=== PATIENT | female | born 1980 | race Asian ===

== ENCOUNTER 2023-11-27 18:48 | Emergency (ER) | payer OTHER ==
--- NOTE | 2023-11-27 21:21 | ED Physician Documentation ---
PD HPI NECK PAIN - Stated complaint Stated Complaint: NECK PX,AREVALO - Chief complaint Chief Complaint: Heent - History obtained from History obtained from: Patient - Additional information Additional information: Patient is a 43-year-old female with a history of heart failure presenting for evaluation of right-sided neck pain that started yesterday morning. Patient believes that she woke up with the pain and it has been gradually worsening. She states that it feels like a tightness that radiates from the base of her skull down her neck and over the right shoulder. She has tried ibuprofen and Salonpas without any improvement. She was working at her desk today when it felt like it was getting worse around 430 and she was having more difficulties in turning [id number]. She denies any head injury. No neck manipulation. Denies trauma. No numbness or tingling. Does not take any blood thinners. Review of Systems Constitutional: denies: Fever Cardiac: denies: Chest pain / pressure Respiratory: denies: Dyspnea GI: denies: Abdominal Pain Musculoskeletal: reports: Neck pain Neurologic: denies: Numbness PD PAST MEDICAL HISTORY - Present Medications Home Medications: Ambulatory Orders Medication Instructions Recorded Confirmed Amiodarone [Pacerone] 200 mg PO DAILY 11/27/23 Empagliflozin [Jardiance] 10 mg PO DAILY 11/27/23 Oxycodone HCl/Acetaminophen 1 each PO Q6H PRN #10 tablet 11/27/23 [Percocet 5-325 mg Tablet] Sacubitril/Valsartan [Entresto 24 1 tab PO DAILY 11/27/23 mg-26 mg Tablet] Spironolactone [Aldactone] 25 mg PO DAILY 11/27/23 Zebeta 5 mg PO DAILY 11/27/23 - Allergies Allergies/Adverse Reactions: Allergies Allergy/AdvReac Type Severity Reaction Status Date / Time No Known Drug Allergies Allergy Verified 11/27/23 19:12 PD ED PE NORMAL - General General: Alert and oriented X 3, No acute distress, Well developed/nourished - HEENT HEENT: Atraumatic, Moist mucous membranes, Pharynx benign - Neck Neck: No bony TTP, Other (Tenderness and spasm over right trapezius, Pain with lateral neck movements; no pain with touching chin to chest) - Cardiac Cardiac: RRR, Strong equal pulses - Respiratory Respiratory: No respiratory distress, Clear bilaterally - Derm Derm: Warm and dry - Extremities Extremities: Other (Normal strength with shoulder extension, arm flexion and extension, wrist extension and hand grasp) - Neuro Neuro: Alert and oriented X 3, No motor deficit, No sensory deficit, Normal speech Results - Vitals Vitals: Vital Signs - 24 hr 11/27/23 11/27/23 11/27/23 19:03 20:49 22:00 Temperature 36.2 C L Heart Rate 71 65 68 Respiratory 17 24 18 Rate Blood Pressure 113/72 123/70 111/90 H O2 Saturation 98 98 98 11/27/23 23:27 Temperature Heart Rate 62 Respiratory 16 Rate Blood Pressure 114/76 O2 Saturation 97 Oxygen O2 Source Room air PD Medical Decision Making - ED course Complexity details: re-evaluated patient ED course: Patient is a 43-year-old female presenting for evaluation of right-sided neck pain for the past 2 days. Patient states that it is gradually been worsening and also now causing a headache. Denies injury or trauma. No neck manipulations. No radicular symptoms to upper extremities. Good distal pulses.No fever or other illness to suggest meningitis. History does also not suggest subarachnoid hemorrhage. Patient does have focal tenderness to the right paracervical region.Initially patient was given a dose of IM Toradol, p.o. Flexeril and a lidocaine patch with only minimal improvement in symptoms. Patient then received an oxycodone and reported feeling much better. She states she did not feel like the muscle relaxer helped her very much. Discussed Co ntinued supportive care as well as concerning symptoms to return for. Patient also advised on need for close follow-up. 2310 - Feeling better, feels like she has had some relief from the pain. Is able to turn her neck to the sides better. Departure - Departure Disposition: 01 Home, Self Care Clinical Impression: Neck pain Condition: Stable Instructions: ED Neck Pain No Trauma Prescriptions: Oxycodone HCl/Acetaminophen [Percocet 5-325 mg Tablet] 1 each PO Q6H PRN #10 tablet PRN Reason: pain Comments: I have sent a prescription for pain medication to [facility] in [place]. Please use this only as needed. Otherwise please continue with anti- inflammatory such as acetaminophen or ibuprofen. You can try heat to the area as ice did not seem like it helped very much. If at anytime you have any worsening symptoms please return to the emergency department. Otherwise I would recommend follow-up with your primary care provider if your symptoms or not improving. I am prescribing a short course of narcotic pain medication for you. These are potentially dangerous and addictive medications that should be used carefully. These medications may constipate you. Take an bakf-flx-brnazti stool softener (docusate) twice daily with plenty of water while taking these medications. If you go 24 hours without a bowel movement, take [id number] miralax, per package instructions. Do not drink or drive while taking these medications. If you received narcotic or sedating medications while in the emergency department, do not drive for 24 hours. Store this medication in a safe, secure place and out of reach of children. It is a violation of federal law to give or sell this medication to another person or to use in a manner other than prescribed. The ED will not refill narcotic prescriptions, including prescriptions lost or stolen. To dispose of unwanted medications: 1. [facility] at [address] in [place] has a medication drop box. They accept prescription medications (in pill form) Sunday through Sunday 9:00 a.m. to 5:00 p.m. 2. The [facility] [employer] accepts prescription medications (in pill form only) for disposal year round. Call for more information. 3. Contact the [facility] for the next [facility] sponsored prescription drug collection event. , [phone], or [phone]; Note that many narcotic pain relievers also contain Tylenol/acetaminophen. Please ensure that your total dose of acetaminophen from all sources does not exceed 3 g (3000 mg) per day. Forms: PCP List, Activity restrictions Discharge Date/Time: 11/27/23 23:28
[2023-11-27] MEDS: CYCLOBENZAPRINE 10 MG TABLET PO STA (21:35)
[2023-11-27] MEDS: KETOROLAC 60 MG/2 ML VIAL IM STA (21:35)
[2023-11-27] MEDS: LIDOCAINE PATCH 4% TOP STA (21:35)
[2023-11-27] MEDS: oxyCODONE 5 MG TABLET PO STA (22:29)
[2023-11-27] MEDS: oxyCODONE/ACET 5/325 Prepack 4 PO STA (23:22)
[2023-11-27 23:29] VITALS: BP 114/76; O2SAT 97
== END 2023-11-27 23:28 | disposition home or self-care (01) ==
LOC: ED 18:48
DX: M54.2 Cervicalgia (principal); M25.511 Pain in right shoulder; R51.9 Headache, unspecified
CPT/HCPCS: 96374; 99283; A9270

== ENCOUNTER 2023-11-30 11:33 | Emergency (ER) | payer OTHER ==
--- NOTE | 2023-11-30 11:51 | ED Physician Documentation ---
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 Patient was here 3 days ago when she described neck pain and neck stiffness. Pain originally started Sunday when she first woke up she felt a mild aching to the right portion of her neck throughout the day it had gotten significantly worse. She presented to the emergency department where she was given muscle relaxers and pain medications which did alleviate a lot of her pain but did not take away her pain. At home she has been continuing to take the Percocet, Tylenol, ibuprofen, lidocaine patch, IcyHot patches to the neck as well as muscle relaxers nothing seems to alleviate the show pain that she is experiencing in her right neck. She describes the pain as sharp shooting she has no arm weakness pain does not radiate to her arms is mostly on the right side of her neck mostly anterior and then wraps around the right portion behind her head. She says that there is pain with swallowing she has limited range of motion especially when she is looking towards the right she is able to put her chin to her chest. She has no recent fevers or chills no recent illnesses she has had no recent international travel and no one in the household is sick. PD PAST MEDICAL HISTORY - Past Medical History Past Medical History: No Cardiovascular: Congestive heart failure, Arrhythmia - Past Surgical History Past Surgical History: Yes Cardiovascular: Other - Present Medications Home Medications: Ambulatory Orders Medication Instructions Recorded Confirmed Amiodarone [Pacerone] 200 mg PO DAILY 11/27/23 11/30/23 Empagliflozin [Jardiance] 10 mg PO DAILY 11/27/23 11/30/23 Oxycodone HCl/Acetaminophen 1 each PO Q6H PRN #10 tablet 11/27/23 11/30/23 [Percocet 5-325 mg Tablet] Sacubitril/Valsartan [Entresto 24 1 tab PO DAILY 11/27/23 11/30/23 mg-26 mg Tablet] Spironolactone [Aldactone] 25 mg PO DAILY 11/27/23 11/30/23 bisoproloL fumarate [Bisoprolol 5 mg PO DAILY 11/30/23 11/30/23 Fumarate] - Allergies Allergies/Adverse Reactions: Allergies Allergy/AdvReac Type Severity Reaction Status Date / Time No Known Drug Allergies Allergy Verified 11/30/23 11:43 - Social History Does the pt smoke?: No Smoking Status: Never smoker Does the pt drink ETOH?: No Does the pt have substance abuse?: No PD ED PE NORMAL - Vitals Vital signs reviewed: Yes - General General: Alert and oriented X 3, Well developed/nourished - HEENT HEENT: PERRL, EOMI, Moist mucous membranes, Pharynx benign - Neck Neck: Supple, no meningeal sign, No bony TTP, No adenopathy, No JVD - Cardiac Cardiac: RRR - Respiratory Respiratory: No respiratory distress, Clear bilaterally - Back Back: No spinal TTP - Derm Derm: Normal color, Warm and dry, No rash - Extremities Extremities: No deformity, No tenderness to palpate, Normal ROM s pain, No edema - Neuro Neuro: Alert and oriented X 3, 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, No motor deficit, Normal speech Eye Opening: Spontaneous Motor: Obeys Commands Verbal: Oriented GCS Score: 15 - Psych Psych: Normal mood Results - Vitals Vitals: Vital Signs - 24 hr 11/30/23 11/30/23 11:37 15:48 Temperature 36.5 C Heart Rate 71 78 Respiratory 15 16 Rate Blood Pressure 125/77 121/83 H O2 Saturation 99 100 Oxygen O2 Source Room air - Labs Labs: Laboratory Tests 11/30/23 11/30/23 12:30 14:00 Sodium 138 Potassium 4.0 Chloride 105 Carbon Dioxide 24 Anion Gap 9.0 BUN 18 Creatinine 0.8 Estimated GFR (MDRD) 78 L Glucose 93 Calcium 9.5 Total Bilirubin 0.8 AST 13 ALT 11 Alkaline Phosphatase 30 L Total Protein 7.8 Albumin 4.4 Globulin 3.4 Albumin/Globulin Ratio 1.3 Urine HCG, Qual NEGATIVE - Rads (name of study) CT neck soft tissue without Relevant Findings:: Final report received, EMP independent interpretation of test (No acute abnormal findings within the neck, no bony abnormalities she is normal glands, no . Enlarged lymph nodes) PD Medical Decision Making - ED course ED course: 43-year-old female presents emergency department for neck pain. She was here 3 days ago no imaging was done. He said that since she is gone home the pain has not gotten worse but it has persisted. She said that she is having pain with swallowing so we decided to go ahead with the CT soft tissue for further evaluation of this for concerns of possible abnormalities in relation to your parotid glands. CT came back unremarkable no bony abnormalities no enlarged lymph nodes, normal glands. She has no pain with talking her Chin to her chest no p tenderness with palpation throughout entire cervical region no spinal process tenderness. She has had no fevers or chills make me less worried that a possible abscess. Labs are also obtained no kidney impairment GFR slightly suppressed at 78, normal BUN normal creatinine no electrolyte abnormalities I am that patient is experiencing pain to the cervical region due to neck st rain. Patient was told to continue with medication she already has at home and to do some range of motion exercises as well as gentle stretching to help alleviate what I believe is the knot to the right side of her neck. She is told to follow-up with primary care provider for physical therapy referral. After providing information and education on how to do range of motion stretching and exercises patient did ask for a neck brace. He was then reiterated the importance of continuing to use her neck and stretch her neck at home and did not hold it still. Patient says that she does understand but she says that this is going to be hard for her. No medication changes she is given strict ER return precautions. Departure - Departure Disposition: 01 Home, Self Care Clinical Impression: Neck muscle strain Qualifiers: Encounter type: initial encounter Qualified Code(s): S16.1XXA - Strain of muscle, fascia and tendon at neck level, initial encounter Instructions: Head Tilt, ED Spasm Neck No Injury Comments: Thank you for trusting us with your care we have completed a cervical CT scan and there were no acute abnormal findings visualized. I believe that the pain you are experiencing is due to muscle strain. As we discussed it is very important that you continue to go home and do range of motion exercises and gentle stretching to your neck to help with the pain that you are experiencing. I would also alternate between 20 minutes of ice, 20 minutes of heat, followed stretching. Make sure that you are drinking plenty of fluids while doing these range of motion exercises and follow-up with your primary care provider to get in with physical therapist for ongoing evaluation of this neck strain. Please come back to the emergency department for starting develop any fevers or chills, or severe worsening symptoms.
[2023-11-30] MEDS: HYDROmorphone 0.5 MG/0.5 ML SYRINGE IVP STA (12:39)
[2023-11-30] MEDS ORDERED: iohexoL-300 100 ML VIAL ONE (14:04)
[2023-11-30 14:07] LABS: HCG UR QUAL NEGATIVE
[2023-11-30 14:39] LABS: ALBUMIN 4.4 g/dL (3.2-5.5); ALBUMIN/GLOBULIN RATIO 1.3 (1.0-2.2); BILIRUBIN,TOTAL 0.8 mg/dL (0.2-1.0); CALCIUM 9.5 mg/dL (8.5-10.3); CREATININE 0.8 mg/dL (0.6-1.3); TOTAL PROTEIN 7.8 g/dL (6.4-8.9)
[2023-11-30] MEDS: iohexoL-300 100 ML VIAL IVP ONE (14:47)
--- NOTE | 2023-11-30 15:13 | CT Report ---
PROCEDURE: Soft Tissue Neck W INDICATIONS: right neck pain, pain with swallowing CONTRAST: 100ml omni 300 TECHNIQUE: After the administration of intravenous contrast, 3.0 mm axial sections acquired from the sella to th e aortic arch. Additional oblique axial 3.0 mm sections acquired through the pharynx. 3 mm thick co simran reformats were generated. For radiation dose reduction, the following was used: automated exp osure control, adjustment of mA and/or kV according to patient size. COMPARISON: None. FINDINGS: Image quality: Excellent. Lymph nodes: No enlarged lymph nodes seen throughout the neck. Vessels: Visualized vasculature appears patent. Neck spaces: The oropharynx, nasopharynx, and pharynx demonstrate no mucosal lesions. The vocal cor ds, false vocal cords, pyriform sinuses, epiglottis, vallecula, and tongue base all appear normal. E xtramucosal spaces appear unremarkable. Glands: The parotid and submandibular glands appear normal. The thyroid is normal in size and there are no incidental findings. Miscellaneous: Visualized brain and orbits appear normal. Lung apices appear clear. Superficial so ft tissues appear normal. Bones: No suspicious bony lesions. Visualized sinuses and mastoids appear unremarkable. IMPRESSION: No abnormalities within the neck. No cause for patient's symptoms is identified. Reviewed by: Sonu Velázquez MD on 11/30/2023 3:12 PM PST Approved by: Sonu Velázquez MD on 11/30/2023 3:12 PM PST Station ID: [id number]
[2023-11-30 15:57] VITALS: BP 121/83; O2SAT 100
== END 2023-11-30 15:49 | disposition home or self-care (01) ==
LOC: ED 11:33
DX: S16.1XXA Strain of muscle, fascia and tendon at neck level, initial encounter (principal); X58.XXXA Exposure to other specified factors, initial encounter
CPT/HCPCS: 36415; 70491; 80053; 81025; 96374; 99283; 99284; J1170; Q9967